=== PATIENT | male | born 1970 | race Caucasian/White ===

== ENCOUNTER 2022-06-08 03:23 | Inpatient (IN) | payer BC, SELFPAY ==
[2022-06-08] VITALS (40 sets, daily range): BP systolic 101–139; BP diastolic 66–97; PULSE 91–160; RESP 16–28; TEMP 36.7–37.9; O2SAT 93–101; BMI 32.3
--- NOTE | 2022-06-08 03:44 | ED.GENADULT ---
HPI - General Adult General Time Seen by Provider: 03:44 Date Seen: 06/08/22 Chief complaint: Arrhythmia/Palpitations Stated complaint: A fib Time Seen by Provider: 06/08/22 10:23 Source: patient and family Mode of arrival: ambulatory Limitations: no limitations History of Present Illness HPI narrative: 51-year-old male who comes in today with palpitations. Patient notes that he has had some chest congestion for the past 4 days. Tonight he had some chills, woke up just prior to coming the emergency department and felt like his heart was going fast. He put on a heart monitor that demonstrated atrial fibrillation and so came to the emergency department. Patient notes that he has had several episodes similar to this in the past and was told that he has pericarditis. He has some shortness of breath with this, denies chest pain. Related Data Home Medications Medication Instructions Recorded Confirmed fluoxetine 10 mg capsule 10 mg PO DAILY 06/08/22 06/08/22 fluoxetine 20 mg capsule 60 mg PO DAILY 06/08/22 06/08/22 valacyclovir 1 gram tablet 1,000 mg PO DAILY 06/08/22 06/08/22 Allergies Allergy/AdvReac Type Severity Reaction Status Date / Time No Known Drug Allergies Allergy Verified 06/08/22 03:39 Review of Systems Status of ROS: Reports: 10 or more systems reviewed and unremarkable except as noted in History and below [facility] Medical History ADHD Afib Depression Diverticulosis of colon History of pericarditis HTN (hypertension) Migraines Paroxysmal atrial fibrillation with RVR Pulmonary nodule seen on imaging study Surgical History History of appendectomy Social History Highest level of school completed/degree received: Bachelor's degree Smoking Status: Never smoker Do you use any of these nicotine containing products: None How often do you have a drink containing alcohol: monthly or less AUDIT-C Alcohol total score: 1 Non-prescribed substance use: denies use Caffeine: Yes (iced tea) service: No Exam Const: Vital Signs, click to edit/add: Vital Signs - 24 hr 06/08/22 03:36 06/08/22 03:45 06/08/22 04:00 Temperature 100.3 F H 100.3 F H Pulse Rate [Apical ] 151 H 160 H 146 H Respiratory Rate 22 24 26 H Blood Pressure [Le ft Upper Arm] 127/91 H 127/91 H 139/84 Pulse Oximetry 96 96 95 Oxygen Delivery Me thod Room Air Room Air Room Air 06/08/22 04:15 06/08/22 04:30 06/08/22 04:45 Temperature Pulse Rate [Apical ] 142 H 140 H 126 H Respiratory Rate 20 20 22 Blood Pressure [Le ft Upper Arm] 102/80 116/83 115/79 Pulse Oximetry 95 96 95 Oxygen Delivery Me thod Room Air Room Air Room Air 06/08/22 05:00 06/08/22 05:15 06/08/22 05:00 Temperature 100.1 F H Pulse Rate [Apical ] 129 H 114 H Respiratory Rate 20 20 Blood Pressure [Le ft Upper Arm] 104/95 H 118/84 Pulse Oximetry 96 [facility] 06/08/22 05:30 06/08/22 06:37 06/08/22 05:45 Temperature 100.1 F H 99.5 F Pulse Rate [Apical ] 138 H 137 H Respiratory Rate 20 24 Blood Pressure [Le ft Upper Arm] 116/90 H 128/97 H Pulse Oximetry 96 96 Oxygen Delivery Me od Room Air Room Air 06/08/22 09:15 06/08/22 06:00 06/08/22 06:25 Temperature Pulse Rate [Apical ] 105 H 126 H 134 H Respiratory Rate Blood Pressure [Le ft Upper Arm] 116/81 117/87 127/73 Pulse Oximetry 93 96 Oxygen Delivery Me od Room Air Room Air Room Air 06/08/22 06:32 06/08/22 07:00 06/08/22 07:20 Temperature Pulse Rate [Apical ] 129 H 116 H 131 H Respiratory Rate 16 28 H 24 Blood Pressure [Le ft Upper Arm] 106/81 123/87 127/77 Pulse Oximetry 95 95 Oxygen Delivery Me od Room Air Room Air 06/08/22 07:40 06/08/22 08:00 06/08/22 08:30 Temperature Pulse Rate [Apical ] 113 H 109 H 103 H Respiratory Rate 24 27 H 22 Blood Pressure [Le ft Upper Arm] 105/83 131/90 H 121/83 Pulse Oximetry 95 94 94 Oxygen Delivery Me thod Room Air Room Air 06/08/22 09:05 06/08/22 09:30 06/08/22 10:00 Temperature Pulse Rate [Apical ] 110 H 120 H 101 H Respiratory Rate 21 18 24 Blood Pressure [Le ft Upper Arm] 125/91 H 117/89 101/81 Pulse Oximetry 95 96 101 H Oxygen Delivery Me thod Room Air Room Air Room Air 06/08/22 10:30 06/08/22 11:30 06/08/22 12:00 Temperature Pulse Rate [Apical ] 105 H 109 H 101 H Respiratory Rate Blood Pressure [Le ft Upper Arm] 103/79 108/84 124/80 Pulse Oximetry 94 95 93 Oxygen Delivery Me thod Room Air Room Air Room Air 06/08/22 12:30 06/08/22 13:00 06/08/22 13:30 Temperature Pulse Rate [Apical ] 103 H 96 99 Respiratory Rate Blood Pressure [Le ft Upper Arm] 120/84 116/84 116/76 Pulse Oximetry 95 95 95 Oxygen Delivery Me thod Room Air Room Air Room Air 06/08/22 13:00 06/08/22 14:00 06/08/22 14:30 Temperature Pulse Rate [Apical ] 96 101 H 106 H Respiratory Rate 24 21 Blood Pressure [Le ft Upper Arm] 116/84 111/66 116/77 Pulse Oximetry 95 94 96 Oxygen Delivery Me thod Room Air Room Air Room Air 06/08/22 15:00 06/08/22 15:30 Temperature Pulse Rate [Apical ] 109 H 102 H Respiratory Rate 26 H 20 Blood Pressure [Le ft Upper Arm] 135/92 H 115/81 Pulse Oximetry 96 93 Oxygen Delivery Me thod Room Air Room Air Documenting provider has reviewed patient's vital signs: yes Common normals: no apparent distress, oriented x3, alert and well nourished HENMT: Common normals: normocephalic, head/scalp atraumatic, external ears normal and external nose normal Head and scalp: normocephalic and atraumatic Nose: external nose normal External ear: external ears normal Eye: Common normals: PERRL and conjunctivae normal Conjunctiva: conjunctiva(e) normal Pupil: PERRL Neck & C-Spine: Common normals: full ROM, no lymphadenopathy and supple Chest: Common normals: palpation of chest normal Resp: Common normals: normal respiratory effort and clear to auscultation bilaterally Auscultation: clear to auscultation bilaterally Cardio: Common normals: no murmurs Rate: tachycardic Rhythm: abnormal rhythm irregularly irregular GI: Common normals: Normal to inspection, nondistended, normoactive bowel sounds present, soft to palpation and non-tender Palpation: soft : Common normals: no CVA tenderness Bladder/kidney exam: no CVA tenderness Back & Pelvis: Common normals: no CVA tenderness and thoracic and lumbar spine normal to inspection Extremity: Common normals: normal to inspection, full ROM and no pedal edema Neuro: Common normals: oriented x3, CN's II-XII intact bilaterally and no focal motor deficits Sensorium/orientation: alert Psych: Common normals: mental status grossly normal Skin: Common normals: no rashes or lesions noted General skin exam: no rashes or lesions noted Course Course Hospital Course: Patient seen and examined, prior records are reviewed. Patient presents with palpitations and found to be in atrial fibrillation. He has had similar in the past mood to pericarditis. Other than atrial fibrillation, EKG does not demonstrate any acute ST changes. Labs are ordered and will evaluate for pericarditis, acute coronary syndrome, pulmonary embolism. IV fluids and Cardizem are ordered. Reevaluation(s) Reevaluation #1: Troponin, basic panel are reassuring. Minimal improvement in heart rate after Cardizem IV, repeat doses ordered. Chest x-ray personally reviewed and interpreted by me demonstrates questionable cardiomegaly which may be technique based. Basic panel is reassuring. Magnesium, CRP, BNP, TSH are pending. Time: 04:35 Reevaluation #2: Bedside echocardiogram does not demonstrate significant effusion although limited due to body habitus. D-dimer is elevated, chest CT is ordered. Second dose of Cardizem it has just been given, heart rate did decrease to 100-120. Time: 04:53 Reevaluation #3: Patient remains tachycardic 120-130 after 2nd dose of Cardizem, Cardizem drip is initiated. CT scan does appear to show a small pericardial effusion. CV reviews elevated. Will discuss with Cardiology went radiology interpretation CT is done. Time: 05:39 Additional Reevaluation(s): 7:[address] scan does demonstrate a small pericardial effusion and bilateral pleural effusions. Patient remains stable, heart rate 110-120 on Cardizem drip. Will discuss with Cardiology. Consultations Consultation #1: Care discussed with with [facility]. Recommends switching to amiodarone for rate control, also initiating colchicine. No beds available for transfer. Will continue to monitor in the emergency department while looking for alternative bed placement. Time: 07:50 Consultation #2: Care discussed with cardiology at [place]. Recommends continuing Cardizem for rate control, no echocardiogram recommended at this time, consider cardiac MRI as an outpatient. Agrees with plan for colchicine but feels patient does not need higher level of care if patient could be admitted on Cardizem drip and [place]. Will discuss with hospitalist. Time: 08:17 Vital Signs Vital signs: Initial Vital Signs Temperature 100.3 F H 06/08/22 03:36 Temperature Source Temporal Artery Scan 06/08/22 03:36 Pulse Rate 151 H 06/08/22 03:36 Pulse Rhythm 06/08/22 03:36 Respiratory Rate 22 06/08/22 03:36 Blood Pressure 127/91 H 06/08/22 03:36 Blood Pressure Mean 103 06/08/22 03:36 Blood Pressure Position Sitting 06/08/22 03:36 Pulse Oximetry 96 06/08/22 03:36 Oxygen Delivery Method 06/08/22 03:36 Vital Signs Temperature 100.3 F H 06/08/22 03:36 Pulse Rate 151 H 06/08/22 03:36 Respiratory Rate 22 06/08/22 03:36 Blood Pressure 127/91 H 06/08/22 03:36 Pulse Oximetry 96 06/08/22 03:36 Oxygen Delivery Method 06/08/22 03:36 Temperature 98.5 F 06/08/22 16:21 Pulse Rate 95 06/08/22 17:25 Respiratory Rate 20 06/08/22 17:23 Blood Pressure 120/84 06/08/22 17:15 Pulse Oximetry 94 06/08/22 17:23 Oxygen Delivery Method 06/08/22 17:23 Medical Decision Making Medical Records Medical records reviewed: Yes I reviewed the patient's medical records Lab Data Lab results reviewed: Yes I reviewed the patient's lab results Labs: Lab Results 06/08/22 06/08/2222 Range/Units 03:47 03:47 03:47 WBC 8.03 (4.50-11.00) K/uL RBC 4.52 (4.30-5.90) m/uL Hgb 13.9 (13.5-17.5) gm/dL Hct 40.4 (37.0-53.0) % MCV 89 (80-100) fL MCH 31 (26-34) pg MCHC 34 (32-36) gm/dL RDW Coeff of [place] 11.9 (11.5-15.5) % Plt Count 287 (140-440) K/uL Neut % (Auto) 68.2 (42.0-72.0) % Lymph % (Auto) 18.6 L (20-44) % [place] % (Auto) 11.1 H (0.0-11.0) % Eos % (Auto) 1.5 (0.0-7.0) % Baso % (Auto) 0.2 (0.0-3.0) % Neut # (Auto) 5.48 (1.7-7.0) K/uL Lymph # (Auto) 1.50 (0.90-2.90) K/uL [place] # (Auto) 0.90 (0.00-0.90) K/UL Eos # (Auto) 0.12 (0.00-0.50) K/uL Baso # (Auto) 0.02 (0.00-0.30) K/uL Abs Immat Gran (auto) 0.03 (0.00-0.30) K/uL D-Dimer Quant (PE/DVT) 1.80 H (0.00-0.50) ug/ml Sodium 135 (135-149) mmol/L Potassium 3.9 (3.6-5.1) mmol/L Chloride 103 (96-114) mmol/L Carbon Dioxide 24 (20-32) mmol/L BUN 22 (7-30) mg/dL Creatinine 0.9 (0.5-1.5) mg/dL Estimated Creat Clear 97.10 Estimated GFR 103 ml/min Glucose 130 H (60-115) mg/dL Calcium 9.1 (8.4-10.6) mg/dL Magnesium (1.5-2.6) mg/dL C-Reactive Protein (0.5-1.0) mg/dL NT-Pro-B Natriuret Pep 838 H (0-125) PG/mL TSH (0.270-4.200) uIU/mL Urine Opiates Screen (Negative) Ur Oxycodone Screen (Negative) Urine Methadone Screen (Negative) Ur Propoxyphene Screen (Negative) Ur Barbiturates Screen (Negative) U Tricyclic Antidepress (Negative) Ur Phencyclidine Scrn (Negative) Ur Amphetamines Screen (Negative) U Methamphetamines Scrn (Negative) U Benzodiazepines Scrn (Negative) Urine Cocaine Screen (Negative) U Marijuana (THC) Screen (Negative) Ur Drug Screen Comment Ethyl Alcohol < 0.01 L (0.01-0.03) % SARS-CoV-2 (PCR) (Negative) Influenza Type A (PCR) (Negative) Influenza Type B (PCR) (Negative) POC Troponin I (0.01-0.04) ng/ml 06/08/22 06/08/22 06/08/22 Range/Units 03:47 03:47 03:47 WBC (4.50-11.00) K/uL RBC (4.30-5.90) m/uL Hgb (13.5-17.5) gm/dL Hct (37.0-53.0) % MCV (80-100) fL MCH (26-34) pg MCHC (32-36) gm/dL RDW Coeff of [place] (11.5-15.5) % Plt Count (140-440) K/uL Neut % (Auto) (42.0-72.0) % Lymph % (Auto) (20-44) % [place] % (Auto) (0.0-11.0) % Eos % (Auto) (0.0-7.0) % Baso % (Auto) (0.0-3.0) % Neut # (Auto) (1.7-7.0) K/uL Lymph # (Auto) (0.90-2.90) K/uL [place] # (Auto) (0.00-0.90) K/UL Eos # (Auto) (0.00-0.50) K/uL Baso # (Auto) (0.00-0.30) K/uL Abs Immat Gran (auto) (0.00-0.30) K/uL D-Dimer Quant (PE/DVT) (0.00-0.50) ug/ml Sodium (135-149) mmol/L Potassium (3.6-5.1) mmol/L Chloride (96-114) mmol/L Carbon Dioxide (20-32) mmol/L BUN (7-30) mg/dL Creatinine (0.5-1.5) mg/dL Estimated Creat Clear Estimated GFR ml/min Glucose (60-115) mg/dL Calcium (8.4-10.6) mg/dL Magnesium (1.5-2.6) mg/dL C-Reactive Protein 5.7 H (0.5-1.0) mg/dL NT-Pro-B Natriuret Pep (0-125) PG/mL TSH 1.020 (0.270-4.200) uIU/mL Urine Opiates Screen (Negative) Ur Oxycodone Screen (Negative) Urine Methadone Screen (Negative) Ur Propoxyphene Screen (Negative) Ur Barbiturates Screen (Negative) U Tricyclic Antidepress (Negative) Ur Phencyclidine Scrn (Negative) Ur Amphetamines Screen (Negative) U Methamphetamines Scrn (Negative) U Benzodiazepines Scrn (Negative) Urine Cocaine Screen (Negative) U Marijuana (THC) Screen (Negative) Ur Drug Screen Comment Ethyl Alcohol (0.01-0.03) % SARS-CoV-2 (PCR) (Negative) Influenza Type A (PCR) (Negative) Influenza Type B (PCR) (Negative) POC Troponin I 0.00 L (0.01-0.04) ng/ml 06/08/22 06/08/22 06/08/22 Range/Units 03:47 03:55 04:16 WBC (4.50-11.00) K/uL RBC (4.30-5.90) m/uL Hgb (13.5-17.5) gm/dL Hct (37.0-53.0) % MCV (80-100) fL MCH (26-34) pg MCHC (32-36) gm/dL RDW Coeff of [place] (11.5-15.5) % Plt Count (140-440) K/uL Neut % (Auto) (42.0-72.0) % Lymph % (Auto) (20-44) % [place] % (Auto) (0.0-11.0) % Eos % (Auto) (0.0-7.0) % Baso % (Auto) (0.0-3.0) % Neut # (Auto) (1.7-7.0) K/uL Lymph # (Auto) (0.90-2.90) K/uL [place] # (Auto) (0.00-0.90) K/UL Eos # (Auto) (0.00-0.50) K/uL Baso # (Auto) (0.00-0.30) K/uL Abs Immat Gran (auto) (0.00-0.30) K/uL D-Dimer Quant (PE/DVT) (0.00-0.50) ug/ml Sodium (135-149) mmol/L Potassium (3.6-5.1) mmol/L Chloride (96-114) mmol/L Carbon Dioxide (20-32) mmol/L BUN (7-30) mg/dL Creatinine (0.5-1.5) mg/dL Estimated Creat Clear Estimated GFR ml/min Glucose (60-115) mg/dL Calcium (8.4-10.6) mg/dL Magnesium 1.8 (1.5-2.6) mg/dL C-Reactive Protein (0.5-1.0) mg/dL NT-Pro-B Natriuret Pep (0-125) PG/mL TSH (0.270-4.200) uIU/mL Urine Opiates Screen Negative (Negative) Ur Oxycodone Screen Negative (Negative) Urine Methadone Screen Negative (Negative) Ur Propoxyphene Screen Negative (Negative) Ur Barbiturates Screen Negative (Negative) U Tricyclic Antidepress Negative (Negative) Ur Phencyclidine Scrn Negative (Negative) Ur Amphetamines Screen Negative (Negative) U Methamphetamines Scrn Negative (Negative) U Benzodiazepines Scrn Negative (Negative) Urine Cocaine Screen Negative (Negative) U Marijuana (THC) Screen Negative (Negative) Ur Drug Screen Comment See Note Ethyl Alcohol (0.01-0.03) % SARS-CoV-2 (PCR) Negative SARS-CoV-2 (Negative) Influenza Type A (PCR) Negative PCR FLU A (Negative) Influenza Type B (PCR) Negative PCR FLU B (Negative) POC Troponin I (0.01-0.04) ng/ml Imaging Data Chest x-ray: Attestation: I have reviewed the pertinent imaging results. My impression: Negative CT scan - chest: Attestation: I have reviewed the pertinent imaging results. My impression: No pulmonary embolism, small to moderate-sized pericardial effusion ECG Data Attestation: I personally reviewed and interpreted this ECG as follows: Prior ECG tracings: available for review Interpretation: Performed at 3:32 p.m. demonstrates atrial fibrillation with rapid ventricular response rate 46, no acute ST elevations or depressions, normal axis, QTC 445. Compared to prior March 2017 from [facility], prior EKG demonstrates sinus the Critical Care Time Critical Care Time Critical Care Time: Yes Attestation: The patient required my highest level preparedness to intervene emergently and I personally spent this critical care time directly and personally managing the patient. This critical care time included: Obtaining a history; Examining the patient; Pulse oximetry; Ordering and reviewing of studies; Arranging urgent treatment with development of a management plan; Evaluation of patients response to treatment; Frequent reassessment discussions with other providers. This critical care time was performed to assess and manage the high probability of imminent life-threatening deterioration that could result in multiorgan failure. It was exclusive of separate billable procedures and treating other patients and teaching time. Total Critical Care Time in Minutes: 140 Discharge Plan Discharge Clinical Impression: Atrial fibrillation, Acute pericardial effusion, Pleural effusion Patient Disposition: Admitted As Inpatient Condition: Improved
--- NOTE | 2022-06-08 03:51 | CRLHL7_ITS ---
For Patients: As a result of the Century Cures Act, medical imaging exams and procedure reports are released immediately into your electronic medical record. You may view this report before your referring provider. If you have questions, please contact your health care provider. INDICATION: Dyspnea. TECHNIQUE: Chest 1 views. COMPARISON: Chest radiograph 10/05/2021. FINDINGS: Cardiovascular and mediastinum: Heart size and vasculature are normal in caliber and appearance. Lungs and pleural spaces: Lungs are clear. No sign of infiltrate or mass. No sign of pleural effusion. No pneumothorax. Bones and soft tissues: No significant findings. IMPRESSION: No acute or significant findings. Dictated by Wesly Ansari MD @ 06/08/2022 4:40:58 AM (Electronically Signed)
[2022-06-08] MEDS: 0.9 % SODIUM CHLORIDE 1000 ml 1,000 ML IV (04:04)
[2022-06-08 04:06] LABS: Basophils Absolute Auto 0.02 K/uL (0.00-0.30); Basophils Percent Auto 0.2 % (0.0-3.0); Eosinophils Absolute Auto 0.12 K/uL (0.00-0.50); Eosinophils Percent Auto 1.5 % (0.0-7.0); Hematocrit 40.4 % (37.0-53.0); Hemoglobin* 13.9 gm/dL (13.5-17.5); Immature Granulocytes Abs Auto 0.03 K/uL (0.00-0.30); Lymphocytes Percent Auto 18.6 % (20-44); Mean Corpuscular HGB Conc 34 gm/dL (32-36); Mean Corpuscular Hemoglobin 31 pg (26-34); Mean Corpuscular Volume 89 fL (80-100); Monocytes Percent Auto 11.1 % (0.0-11.0); Neutrophils Absolute Auto 5.48 K/uL (1.7-7.0); Neutrophils Percent Auto 68.2 % (42.0-72.0); Platelet Count* 287 K/uL (140-440); RDW Coefficient of Variation % 11.9 % (11.5-15.5); Red Blood Count 4.52 m/uL (4.30-5.90); White Blood Count* 8.03 K/uL (4.50-11.00)
[2022-06-08] MEDS: dilTIAZem 5 MG/ML inj 10 MG IVP (04:08)
[2022-06-08 04:16] LABS: Slide Review Reflex No
[2022-06-08 04:21] LABS: Chloride* 103 mmol/L (96-114); Sodium* 135 mmol/L (135-149)
[2022-06-08 04:22] LABS: Potassium* 3.9 mmol/L (3.6-5.1)
[2022-06-08 04:24] LABS: Carbon Dioxide* 24 mmol/L (20-32); Creatinine* 0.9 mg/dL (0.5-1.5); Estimated Glomerular Filt Rate 103 ml/min
[2022-06-08 04:25] LABS: Blood Urea Nitrogen* 22 mg/dL (7-30); Calcium* 9.1 mg/dL (8.4-10.6); Ethanol* < 0.01 % (0.01-0.03); Glucose* 130 mg/dL (60-115)
[2022-06-08 04:34] LABS: Amphetamine Screen Urine Negative (Negative); Barbiturate Screen Urine Negative (Negative); Benzodiazepines Screen Urine Negative (Negative); Cannabinoid Screen Urine Negative (Negative); Cocaine Screen Urine Negative (Negative); Methadone Screen Urine Negative (Negative); Methamphetamines Screen Urine Negative (Negative); Opiate Screen Urine Negative (Negative); Oxycodone Screen Urine Negative (Negative); Phencyclidine Screen Urine Negative (Negative); Tricyclic Antidepressant Urine Negative (Negative)
[2022-06-08] MEDS: dilTIAZem 5 MG/ML inj 15 MG IVP (04:47)
[2022-06-08] MEDS: ACETAMINOPHEN 500 MG TABLET 1000 MG PO (04:48)
--- NOTE | 2022-06-08 04:53 | CRLHL7_ITS ---
For Patients: As a result of the Century Cures Act, medical imaging exams and procedure reports are released immediately into your electronic medical record. You may view this report before your referring provider. If you have questions, please contact your health care provider. INDICATION: Elevated D-dimer, atrial fibrillation TECHNIQUE: CT chest pulmonary PE protocol acquired with 95 cc Isovue 370 IV contrast. COMPARISON: Chest CT April 25, 2020, July 03, 2018. FINDINGS: Cardiovascular structures: Normal vascular enhancement of the pulmonary arteries, no sign of pulmonary embolism. Heart size is normal. No sign of aneurysm in the thoracic aorta. New, small pericardial effusion. Mediastinum and clara: No mass or adenopathy. Lungs: 4.8 mm subpleural pulmonary nodule right upper lobe image 47 series 8, new compared to July 03, 2018. 9 mm pulmonary nodule in the right middle lobe image 98 series 8, stable. Pleura: New, small bilateral pleural effusions. Chest wall and axilla: No mass or adenopathy. Upper abdomen: Colonic diverticulosis. Bones: No significant findings. IMPRESSION: No pulmonary embolism. New, small pericardial effusion. New, small bilateral pleural effusions. Right middle lobe pulmonary nodule, stable since 2017. This can be considered benign. New pulmonary nodule in the right upper lobe which is new compared to the prior study. Recommend follow-up per Fleischner society guidelines, as listed below. Colonic diverticulosis. FLEISCHNER SOCIETY GUIDELINES - SOLID NODULES: SINGLE LOW RISK - nodule less than 6 mm: No routine follow-up. - nodule 6-8 mm: CT at 6-12 months, then consider CT at 18-24 months. - nodule greater than 8 mm: Consider CT at 3 months, PET/CT or tissue sampling. SINGLE HIGH RISK - nodule less than 6 mm: Optional CT at 12 months. - nodule 6-8 mm: CT at 6-12 months, then CT at 18-24 months. - nodule greater than 8 mm: Consider CT at 3 months, PET/CT or tissue sampling. Please note that all CT scans at this facility use dose modulation, iterative reconstruction, and/or weight-based dosing when appropriate to reduce radiation dose to as low as reasonably achievable. Dictated by Fiorella Holly MD @ 06/08/2022 7:04:26 AM (Electronically Signed)
[2022-06-08 04:57] LABS: PCR FLU A Negative PCR FLU A (Negative); PCR FLU B Negative PCR FLU B (Negative)
[2022-06-08 05:04] LABS: SARS PCR* Negative SARS-CoV-2 (Negative)
[2022-06-08 05:12] LABS: NT Pro B Type NatriureticPept* 838 PG/mL (0-125)
[2022-06-08 05:13] LABS: Magnesium* 1.8 mg/dL (1.5-2.6)
[2022-06-08 05:34] LABS: C Reactive Protein* 5.7 mg/dL (0.5-1.0)
[2022-06-08] MEDS: dilTIAZem HCL 125 MG in 0.9 % SODIUM CHLORIDE 100 ml 100 ML IVPB (05:49)
--- NOTE | 2022-06-08 06:45 | PC.NURSE ---
pt up at bedside using urinal, c/o increased shortness of breath with activity. headache discomfort still 03/05. physician updated.
--- NOTE | 2022-06-08 06:46 | PC.NURSE ---
per physician verbal order, titrate diltiazem drip as ordered, maintain systolic >100.
[2022-06-08] MEDS: dilTIAZem HCL 125 MG in 0.9 % SODIUM CHLORIDE 100 ml 100 ML 10 MG IVPB (07:35)
--- NOTE | 2022-06-08 07:35 | ED.NURSE ---
Per Dr Anna, continue on diltiazem drip.
[2022-06-08] MEDS: FUROSEMIDE 10 MG/ML inj 40 MG IVP (07:43)
[2022-06-08] MEDS: COLCHICINE 0.6 MG CAPSULE PO (08:17)
--- NOTE | 2022-06-08 09:38 | ED.NURSE ---
did void 300 ml and had 1000 ml out from [id number].
--- NOTE | 2022-06-08 13:04 | ED.GENADULT ---
HPI - General Adult General Chief complaint: Arrhythmia/Palpitations Stated complaint: A fib Time Seen by Provider: 06/08/22 10:23 Source: patient and family Mode of arrival: ambulatory Limitations: no limitations Related Data Home Medications Medication Instructions Recorded Confirmed fluoxetine 10 mg capsule 10 mg PO DAILY 06/08/22 06/08/22 fluoxetine 20 mg capsule 60 mg PO DAILY 06/08/22 06/08/22 valacyclovir 1 gram tablet 1,000 mg PO DAILY 06/08/22 06/08/22 Allergies Allergy/AdvReac Type Severity Reaction Status Date / Time No Known Drug Allergies Allergy Verified 06/08/22 03:39 PFSH PFS Medical History ADHD Afib Depression Diverticulosis of colon History of pericarditis HTN (hypertension) Migraines Paroxysmal atrial fibrillation with RVR Pulmonary nodule seen on imaging study Surgical History History of appendectomy Social History Highest level of school completed/degree received: Bachelor's degree Smoking Status: Never smoker Do you use any of these nicotine containing products: None How often do you have a drink containing alcohol: monthly or less AUDIT-C Alcohol total score: 1 Non-prescribed substance use: denies use Caffeine: Yes (iced tea) service: No Exam Const: Vital Signs, click to edit/add: Vital Signs - 24 hr 06/08/22 03:36 06/08/22 03:45 06/08/22 04:00 Temperature 100.3 F H 100.3 F H Pulse Rate [Apical ] 151 H 160 H 146 H Respiratory Rate 22 24 26 H Blood Pressure [Le ft Upper Arm] 127/91 H 127/91 H 139/84 Pulse Oximetry 96 96 95 Oxygen Delivery Me thod Room Air Room Air Room Air 06/08/22 04:15 06/08/22 04:30 06/08/22 04:45 Temperature Pulse Rate [Apical ] 142 H 140 H 126 H Respiratory Rate 20 20 22 Blood Pressure [Le ft Upper Arm] 102/80 116/83 115/79 Pulse Oximetry 95 96 95 Oxygen Delivery Me thod Room Air Room Air Room Air 06/08/22 05:00 06/08/22 05:15 06/08/22 05:00 Temperature 100.1 F H Pulse Rate [Apical ] 129 H 114 H Respiratory Rate 20 20 Blood Pressure [Le ft Upper Arm] 104/95 H 118/84 Pulse Oximetry 96 96 Oxygen Delivery Nc thod Room Air Room Air 06/08/22 05:30 06/08/22 06:37 06/08/22 05:45 Temperature 100.1 F H 99.5 F Pulse Rate [Apical ] 138 H 137 H Respiratory Rate 20 24 Blood Pressure [Le ft Upper Arm] 116/90 H 128/97 H Pulse Oximetry 96 96 Oxygen Delivery Me od Room Air Room Air 06/08/22 09:15 06/08/22 06:00 06/08/22 06:25 Temperature Pulse Rate [Apical ] 105 H 126 H 134 H Respiratory Rate Blood Pressure [Le ft Upper Arm] 116/81 117/87 127/73 Pulse [facility]ximetry 93 [facility] 06/08/22 06:32 06/08/22 07:00 06/08/22 07:20 Temperature Pulse Rate [Apical ] 129 H 116 H 131 H Respiratory Rate 16 28 H 24 Blood Pressure [Le ft Upper Arm] 106/81 123/87 127/77 Pulse Oximetry 95 95 [facility] 06/08/22 07:40 06/08/22 08:00 06/08/22 08:30 Temperature Pulse Rate [Apical ] 113 H 109 H 103 H Respiratory Rate 24 27 H 22 Blood Pressure [Le ft Upper Arm] 105/83 131/90 H 121/83 Pulse Oximetry 95 94 94 [facility] 06/08/22 09:05 06/08/22 09:30 06/08/22 10:00 Temperature Pulse Rate [Apical ] 110 H 120 H 101 H Respiratory Rate 21 18 24 Blood Pressure [Le ft Upper Arm] 125/91 H 117/89 101/81 Pulse Oximetry 95 96 101 H Oxygen Delivery Me od Room Air Room Air Room Air 06/08/22 10:30 06/08/22 11:30 06/08/22 12:00 Temperature Pulse Rate [Apical ] 105 H 109 H 101 H Respiratory Rate Blood Pressure [Le ft Upper Arm] 103/79 108/84 124/80 Pulse Oximetry 94 95 93 Oxygen Delivery Me thod Room Air Room Air Room Air 06/08/22 12:30 06/08/22 13:00 06/08/22 13:30 Temperature Pulse Rate [Apical ] 103 H 96 99 Respiratory Rate Blood Pressure [Le ft Upper Arm] 120/84 116/84 116/76 Pulse Oximetry 95 95 95 Oxygen Delivery Me thod Room Air Room Air Room Air 06/08/22 13:00 06/08/22 14:00 06/08/22 14:30 Temperature Pulse Rate [Apical ] 96 101 H 106 H Respiratory Rate 24 21 Blood Pressure [Le ft Upper Arm] 116/84 111/66 116/77 Pulse Oximetry 95 94 96 Oxygen Delivery Me thod Room Air Room Air Room Air 06/08/22 15:00 06/08/22 15:30 Temperature Pulse Rate [Apical ] 109 H 102 H Respiratory Rate 26 H 20 Blood Pressure [Le ft Upper Arm] 135/92 H 115/81 Pulse Oximetry 96 93 Oxygen Delivery Me thod Room Air Room Air Course Course Hospital Course: Patient seen and examined, prior records are reviewed. Patient presents with palpitations and found to be in atrial fibrillation. He has had similar in the past mood to pericarditis. Other than atrial fibrillation, EKG does not demonstrate any acute ST changes. Labs are ordered and will evaluate for pericarditis, acute coronary syndrome, pulmonary embolism. IV fluids and Cardizem are ordered. Vital Signs Vital signs: Initial Vital Signs Temperature 100.3 F H 06/08/22 03:36 Temperature Source Temporal Artery Scan 06/08/22 03:36 Pulse Rate 151 H 06/08/22 03:36 Pulse Rhythm 06/08/22 03:36 Respiratory Rate 06/08/22 03:36 Blood Pressure 127/91 H 06/08/22 03:36 Blood Pressure Mean 103 06/08/22 03:36 Blood Pressure Position Sitting 06/08/22 03:36 Pulse Oximetry 96 06/08/22 03:36 Oxygen Delivery Method 06/08/22 03:36 Vital Signs Temperature 100.3 F H 06/08/22 03:36 Pulse Rate 151 H 06/08/22 03:36 Respiratory Rate 22 06/08/22 03:36 Blood Pressure 127/91 H 06/08/22 03:36 Pulse Oximetry 96 06/08/22 03:36 Oxygen Delivery Method 06/08/22 03:36 Temperature 98.5 F 06/08/22 16:21 Pulse Rate 95 06/08/22 17:25 Respiratory Rate 20 06/08/22 17:23 Blood Pressure 120/84 06/08/22 17:15 Pulse Oximetry 94 06/08/22 17:23 Oxygen Delivery Method 06/08/22 17:23 Medical Decision Making MDM Narrative Medical decision making narrative: The patient has been stable on and IV diltiazem drip, the patient will be transferred to oral diltiazem and then titrated off the drip. He will be transferred the hospital floor per prior discussions with Dr. Anna in hospital team. Lab Data Labs: Lab Results 06/08/22 06/08/22 06/08/22 Range/Units 03:47 03:47 03:47 WBC 8.03 (4.50-11.00) K/uL RBC 4.52 (4.30-5.90) m/uL Hgb 13.9 (13.5-17.5) gm/dL Hct 40.4 (37.0-53.0) % MCV 89 (80-100) fL MCH 31 (26-34) pg MCHC 34 (32-36) gm/dL RDW Coeff of [place] 11.9 (11.5-15.5) % Plt Count 287 (140-440) K/uL Neut % (Auto) 68.2 (42.0-72.0) % Lymph % (Auto) 18.6 L (20-44) % [place] % (Auto) 11.1 H (0.0-11.0) % Eos % (Auto) 1.5 (0.0-7.0) % Baso % (Auto) 0.2 (0.0-3.0) % Neut # (Auto) 5.48 (1.7-7.0) K/uL Lymph # (Auto) 1.50 (0.90-2.90) K/uL [place] # (Auto) 0.90 (0.00-0.90) K/UL Eos # (Auto) 0.12 (0.00-0.50) K/uL Baso # (Auto) 0.02 (0.00-0.30) K/uL Abs Immat Gran (auto) 0.03 (0.00-0.30) K/uL D-Dimer Quant (PE/DVT) 1.80 H (0.00-0.50) ug/ml Sodium 135 (135-149) mmol/L Potassium 3.9 (3.6-5.1) mmol/L Chloride 103 (96-114) mmol/L Carbon Dioxide 24 (20-32) mmol/L BUN 22 (7-30) mg/dL Creatinine 0.9 (0.5-1.5) mg/dL Estimated Creat Clear 97.10 Estimated GFR 103 ml/min Glucose 130 H (60-115) mg/dL Calcium 9.1 (8.4-10.6) mg/dL Magnesium (1.5-2.6) mg/dL C-Reactive Protein (0.5-1.0) mg/dL NT-Pro-B Natriuret Pep 838 H (0-125) PG/mL TSH (0.270-4.200) uIU/mL Urine Opiates Screen (Negative) Ur Oxycodone Screen (Negative) Urine Methadone Screen (Negative) Ur Propoxyphene Screen (Negative) Ur Barbiturates Screen (Negative) U Tricyclic Antidepress (Negative) Ur Phencyclidine Scrn (Negative) Ur Amphetamines Screen (Negative) U Methamphetamines Scrn (Negative) U Benzodiazepines Scrn (Negative) Urine Cocaine Screen (Negative) U Marijuana (THC) Screen (Negative) Ur Drug Screen Comment Ethyl Alcohol < 0.01 L (0.01-0.03) % SARS-CoV-2 (PCR) (Negative) Influenza Type A (PCR) (Negative) Influenza Type B (PCR) (Negative) POC Troponin I (0.01-0.04) ng/ml 06/08/22 06/08/22 06/08/22 Range/Units 03:47 03:47 03:47 WBC (4.50-11.00) K/uL RBC (4.30-5.90) m/uL Hgb (13.5-17.5) gm/dL Hct (37.0-53.0) % MCV (80-100) fL MCH (26-34) pg MCHC (32-36) gm/dL RDW Coeff of [place] (11.5-15.5) % Plt Count (140-440) K/uL Neut % (Auto) (42.0-72.0) % Lymph % (Auto) (20-44) % [place] % (Auto) (0.0-11.0) % Eos % (Auto) (0.0-7.0) % Baso % (Auto) (0.0-3.0) % Neut # (Auto) (1.7-7.0) K/uL Lymph # (Auto) (0.90-2.90) K/uL [place] # (Auto) (0.00-0.90) K/UL Eos # (Auto) (0.00-0.50) K/uL Baso # (Auto) (0.00-0.30) K/uL Abs Immat Gran (auto) (0.00-0.30) K/uL D-Dimer Quant (PE/DVT) (0.00-0.50) ug/ml Sodium (135-149) mmol/L Potassium (3.6-5.1) mmol/L Chloride (96-114) mmol/L Carbon Dioxide (20-32) mmol/L BUN (7-30) mg/dL Creatinine (0.5-1.5) mg/dL Estimated Creat Clear Estimated GFR ml/min Glucose (60-115) mg/dL Calcium (8.4-10.6) mg/dL Magnesium (1.5-2.6) mg/dL C-Reactive Protein 5.7 H (0.5-1.0) mg/dL NT-Pro-B Natriuret Pep (0-125) PG/mL TSH 1.020 (0.270-4.200) uIU/mL Urine Opiates Screen (Negative) Ur Oxycodone Screen (Negative) Urine Methadone Screen (Negative) Ur Propoxyphene Screen (Negative) Ur Barbiturates Screen (Negative) U Tricyclic Antidepress (Negative) Ur Phencyclidine Scrn (Negative) Ur Amphetamines Screen (Negative) U Methamphetamines Scrn (Negative) U Benzodiazepines Scrn (Negative) Urine Cocaine Screen (Negative) U Marijuana (THC) Screen (Negative) Ur Drug Screen Comment Ethyl Alcohol (0.01-0.03) % SARS-CoV-2 (PCR) (Negative) Influenza Type A (PCR) (Negative) Influenza Type B (PCR) (Negative) POC Troponin I 0.00 L (0.01-0.04) ng/ml 08/13/22 08/13/22 08/13/22 Range/Units 03:47 03:55 04:16 WBC (4.50-11.00) K/uL RBC (4.30-5.90) m/uL Hgb (13.5-17.5) gm/dL Hct (37.0-53.0) % MCV (80-100) fL MCH (26-34) pg MCHC (32-36) gm/dL RDW Coeff of [place] (11.5-15.5) % Plt Count (140-440) K/uL Neut % (Auto) (42.0-72.0) % Lymph % (Auto) (20-44) % [place] % (Auto) (0.0-11.0) % Eos % (Auto) (0.0-7.0) % Baso % (Auto) (0.0-3.0) % Neut # (Auto) (1.7-7.0) K/uL Lymph # (Auto) (0.90-2.90) K/uL [place] # (Auto) (0.00-0.90) K/UL Eos # (Auto) (0.00-0.50) K/uL Baso # (Auto) (0.00-0.30) K/uL Abs Immat Gran (auto) (0.00-0.30) K/uL D-Dimer Quant (PE/DVT) (0.00-0.50) ug/ml Sodium (135-149) mmol/L Potassium (3.6-5.1) mmol/L Chloride (96-114) mmol/L Carbon Dioxide (20-32) mmol/L BUN (7-30) mg/dL Creatinine (0.5-1.5) mg/dL Estimated Creat Clear Estimated GFR ml/min Glucose (60-115) mg/dL Calcium (8.4-10.6) mg/dL Magnesium 1.8 (1.5-2.6) mg/dL C-Reactive Protein (0.5-1.0) mg/dL NT-Pro-B Natriuret Pep (0-125) PG/mL TSH (0.270-4.200) uIU/mL Urine Opiates Screen Negative (Negative) Ur Oxycodone Screen Negative (Negative) Urine Methadone Screen Negative (Negative) Ur Propoxyphene Screen Negative (Negative) Ur Barbiturates Screen Negative (Negative) U Tricyclic Antidepress Negative (Negative) Ur Phencyclidine Scrn Negative (Negative) Ur Amphetamines Screen Negative (Negative) U Methamphetamines Scrn Negative (Negative) U Benzodiazepines Scrn Negative (Negative) Urine Cocaine Screen Negative (Negative) U Marijuana (THC) Screen Negative (Negative) Ur Drug Screen Comment See Note Ethyl Alcohol (0.01-0.03) % SARS-CoV-2 (PCR) Negative SARS-CoV-2 (Negative) Influenza Type A (PCR) Negative PCR FLU A (Negative) Influenza Type B (PCR) Negative PCR FLU B (Negative) POC Troponin I (0.01-0.04) ng/ml Discharge Plan Discharge Clinical Impression: Atrial fibrillation, Acute pericardial effusion, Pleural effusion Patient Disposition: Admitted As Inpatient Condition: Improved
[2022-06-08] MEDS: dilTIAZem 30 MG TABLET 60 MG PO (14:32)
--- NOTE | 2022-06-08 15:55 | W.PC.EDHO ---
Primary Language: Preferred Language: Orientation Status: [] Alert & Oriented [] Slight Confusion [] Known Dx Dementia Transfers By: [] Assist of 1 [] Assist of 2 [] Lift Active Medications Discontinued Medications Generic Name Dose Route Start Last Admin Trade Name Rachel PRN Reason Stop Dose Admin Acetaminophen 1,000 mg 06/08/22 04:34 06/08/22 04:48 Acetaminophen 500 Mg Tablet PO 06/08/22 04:35 1,000 mg ONCE ONE Administration Colchicine 0.6 mg 06/08/22 08:30 06/08/22 08:17 Colchicine 0.6 Mg Capsule PO 06/08/22 08:31 0.6 mg ONCE ONE Administration Diltiazem HCl 10 mg 06/08/22 03:52 06/08/22 04:08 Diltiazem 5 Mg/Ml Inj IVP 06/08/22 03:53 10 mg ONCE ONE Administration Diltiazem HCl 15 mg 06/08/22 04:34 06/08/22 04:47 Diltiazem 5 Mg/Ml Inj IVP 06/08/22 04:35 15 mg ONCE ONE Administration Diltiazem HCl 60 mg 06/08/22 13:02 06/08/22 14:32 Diltiazem 30 Mg Tablet PO 06/08/22 13:03 60 mg ONCE ONE Administration Furosemide 40 mg 06/08/22 07:14 06/08/22 07:43 Furosemide 10 Mg/Ml Inj IVP 06/08/22 07:15 40 mg ONCE ONE Administration Sodium Chloride 1,000 mls @ 1,000 mls/hr 06/08/22 04:00 06/08/22 05:00 0.9 % Sodium Chloride 1000 Ml IV 06/08/22 04:59 0 mls/hr .Q1H ALEXSANDER Infusion Diltiazem HCl 125 mg/ Sodium 125 mls @ 5 mls/hr 06/08/22 05:34 06/08/22 07:35 Chloride IVPB 10 mls/hr .TITRATE ALEXSANDER Infusion Protocol Diltiazem HCl 125 mg/ Sodium 125 mls @ 0 mls/hr 06/08/22 08:00 06/08/22 07:35 Chloride IVPB 10 mg/hr .TITRATE ALEXSANDER 10 mls/hr Administration Protocol Per Protocol Description of Symptoms ED Triage Present Problem woke up this AM sweating with chills, states no Description fevers. pt states put on apple watch and it said a fib 150hr, pt comes in with SOB at rest, trouble speaking full sentences without stopping. hr 130- 160. pt hx of pericarditis and a fib. pt states headache ED Triage Date of Onset of 06/08/22 Symptoms Female History Patient Pain Pain Intensity 3 Pain Intensity 6 Pain Intensity 5 Pain Intensity 0 Pain Intensity 5 Pain Scale Used Numeric (1 - 10) Pain Scale Used Numeric (1 - 10) Pain Scale Used Numeric (1 - 10) Pain Scale Used Numeric (1 - 10) IV Insertion/Site Date of IV Line Insertion [ 06/08/22 Left Antecubital] Oxygen Administration Pulse Oximetry 93 Pulse Oximetry 95 Pulse Oximetry 94 Pulse Oximetry 94 Pulse Oximetry 95 Pulse Oximetry 95 Pulse Oximetry 95 Pulse Oximetry 96 Pulse Oximetry 96 Pulse Oximetry 96 Pulse Oximetry 96 Pulse Oximetry 96 Pulse Oximetry 95 Pulse Oximetry 96 Pulse Oximetry 95 Pulse Oximetry 95 Pulse Oximetry 96 Pulse Oximetry 96 Oxygen Delivery Method Room Air Oxygen Delivery Method Room Air Oxygen Delivery Method Room Air Oxygen Delivery Method Room Air Oxygen Delivery Method Room Air Oxygen Delivery Method Room Air Oxygen Delivery Method Room Air Oxygen Delivery Method Room Air Oxygen Delivery Method Room Air Oxygen Delivery Method Room Air Oxygen Delivery Method Room Air Oxygen Delivery Method Room Air Oxygen Delivery Method Room Air Oxygen Delivery Method Room Air Oxygen Delivery Method Room Air Oxygen Delivery Method Room Air Oxygen Delivery Method Room Air Oxygen Delivery Method Room Air Cardiac Monitoring EKG Method 12 Lead EKG Method 12 Lead
--- NOTE | 2022-06-08 16:03 | PM.IMHP1 ---
Hospitalist- H&P: HPI History of Present Illness Time Seen by Provider: 15:00 Date Seen: 06/08/22 Chief complaint: AFib with RVR Narrative: Evens Naidu is a 51 year old man who presents with an irregular rapid heart rate since approximately 2:30 a.m. today. For the past 4 days the patient has had a sense of chest congestion and minimal dyspnea. He thinks this may have started as recently as 1 week ago Friday. He is uncertain if he has had a fever although he has been having episodes of feeling hot. This is not unusual for him after he has been exposed to someone who has a cold. He states his son had a cold he was around his son César think this is how he acquired this. As recently as yesterday morning he thought his symptoms were slowly improving. When out with his last night to celebrate their anniversary. When he returned home he felt hot again. Went to bed. Awoke around 230 this morning with sweat and possibly with chills. He was not able to feel his pulse in his wrist. Was able to feel his pulse in his neck. Pulse was fast. Put on his Pitzi watch which has an lorena and he confirmed his concerned that he had atrial fibrillation again with heart rates ranging from 74-160. At that juncture he decided come into emergency department for further assessment. Denies any chest heaviness, pressure, tightness, or pain. Denies dyspnea at rest, paroxysmal nocturnal dyspnea, or orthopnea. Or last few days has had a sense of dyspnea with exertion although it has not been profound. Denies cough. Has had some chest tightness or congestion off and on over the last several days which has since resolved. States he felt like he had an upper respiratory tract infection. Patient has had at least 5 previous episodes of atrial fibrillation with rapid ventricular response. This has been worked up variously. At 1 point in time possibly as recently as 5 years ago he was said to have had an acute pericarditis. Has had brief episodes of being treated with negative chronotropic agents. Has never been treated with antiarrhythmic agents. He tells me he has never been on anticoagulant. Denies history of venous thromboembolism. Denies myalgias or arthralgias. Aside from the episodes in the last 24 hours of feeling hot and possibly chills, he has had no fevers, rigors, diaphoresis. Denies weight gain or weight loss. Denies edema. Denies syncope, near syncope, orthostasis, lightheadedness, or vertigo. Review of Systems Status of ROS: Reports: 10 or more systems reviewed and unremarkable except as noted in History and below Narrative: Denies angina or anginal equivalent. Denies nausea or vomiting. Denies claudication. Denies edema. Denies other bowel or bladder concerns. No recent trauma, travel, or injury. No recent infectious illnesses. Denies fatigue or malaise. No focal motor neurologic deficits. Denies any rashes or cyanosis. Active in his job. Thoughts are fluent and coherent. No concerns about impending doom. Denies depression or anxiety. [facility] Medical History ADHD Afib Depression Diverticulosis of colon History of pericarditis HTN (hypertension) Migraines Paroxysmal atrial fibrillation with RVR Pulmonary nodule seen on imaging study Surgical History History of appendectomy Social History Smoking Status: Former smoker Do you use any of these nicotine containing products: None How often do you have a drink containing alcohol: monthly or less AUDIT-C Alcohol total score: 1 Non-prescribed substance use: denies use Meds Home Medications and Allergies Home Medications Medication Instructions Recorded Confirmed Type fluoxetine 10 mg capsule 10 mg PO DAILY 06/08/22 06/08/22 History fluoxetine 20 mg capsule 60 mg PO DAILY 06/08/22 06/08/22 History valacyclovir 1 gram tablet 1,000 mg PO DAILY 06/08/22 06/08/22 History Allergies Allergy/AdvReac Type Severity Reaction Status Date / Time No Known Drug Allergies Allergy Verified 06/08/22 03:39 Exam Narrative: Exam Narrative: By the time I see him he is just getting off his diltiazem drip. Heart rates are still 100-110 at rest, irregular rhythm, consistent with atrial fibrillation. Appears comfortable. Articulate. Cooperative. No acute distress. Alert, oriented to self, place, time, situation. Mood and affect are congruent. External auditory canals are clear. Hearing is preserved. Midline nasal septum. Normal nasal mucosa. Oropharynx is benign. Moist buccal mucosa. Dentition in fair repair. Extraocular muscles intact. Pupils equally round react to light combination. No icterus. No adenopathy in the pre or postauricular chains, anterior or posterior cervical chains, supra or infraclavicular fossa, submandibular or submental fossa, or axilla bilaterally. Neck is supple. No JVD, hepatojugular reflux, or carotid bruits. Midline trachea. Normal thyroid gland by palpation. Lungs actually are clear to auscultation without wheezing, rhonchi, or rales. No CVA tenderness. Heart tones with irregular rhythm, normal S1-S2, no murmur, gallop, or rub. PMI not laterally displaced. Abdomen with active bowel sounds, soft, nontender. No rebound or guarding. No organomegaly or masses. Extremities without edema. Palpable pulses in upper lower extremities. No focal motor neurologic deficits. Cranial nerves 3-12 grossly normal. No tremor, asterixis, or ataxia. Skin is intact. No cyanosis, petechiae, rashes, or lesions. Const: Vital Signs, click to edit/add: Vital Signs - 24 hr 06/08/22 03:36 06/08/22 03:45 06/08/22 04:00 Temperature 100.3 F H 100.3 F H Pulse Rate [Apical ] 151 H 160 H 146 H Respiratory Rate 22 24 26 H Blood Pressure [Le ft Upper Arm] 127/91 H 127/91 H 139/84 Pulse Oximetry 96 96 95 Oxygen Delivery Me thod Room Air Room Air Room Air 06/08/22 04:15 06/08/22 04:30 06/08/22 04:45 Temperature Pulse Rate [Apical ] 142 H 140 H 126 H Respiratory Rate 20 20 22 Blood Pressure [Le ft Upper Arm] 102/80 116/83 115/79 Pulse Oximetry 95 96 95 Oxygen Delivery Ia thod Room Air Room Air Room Air 06/08/22 05:00 06/08/22 05:15 06/08/22 05:00 Temperature 100.1 F H Pulse Rate [Apical ] 129 H 114 H Respiratory Rate 20 20 Blood Pressure [Le ft Upper Arm] 104/95 H 118/84 Pulse Oximetry 96 96 Oxygen Delivery Ia thod Room Air Room Air 06/08/22 05:30 06/08/22 06:37 06/08/22 05:45 Temperature 100.1 F H 99.5 F Pulse Rate [Apical ] 138 H 137 H Respiratory Rate 20 24 Blood Pressure [Le ft Upper Arm] 116/90 H 128/97 H Pulse Oximetry 96 [facility] 06/08/22 09:15 06/08/22 06:00 06/08/22 06:25 Temperature Pulse Rate [Apical ] 105 H 126 H 134 H Respiratory Rate Blood Pressure [Le ft Upper Arm] 116/81 117/87 127/73 Pulse Oximetry 93 96 [facility] Room Air 06/08/22 06:32 06/08/22 07:00 06/08/22 07:20 Temperature Pulse Rate [Apical ] 129 H 116 H 131 H Respiratory Rate 16 28 H 24 Blood Pressure [Le ft Upper Arm] 106/81 123/87 127/77 Pulse Oximetry 95 95 Oxygen Delivery [facility] Room Air Room Air 06/08/22 07:40 06/08/22 08:00 06/08/22 08:30 Temperature Pulse Rate [Apical ] 113 H 109 H 103 H Respiratory Rate 24 27 H 22 Blood Pressure [Le ft Upper Arm] 105/83 131/90 H 121/83 Pulse Oximetry 95 94 94 [facility] Air 06/08/22 09:05 Temperature Pulse Rate [Apical ] 110 H Respiratory Rate 21 Blood Pressure [Le ft Upper Arm] 125/91 H Pulse Oximetry 95 Oxygen Delivery [facility] Room Air Hospitalist - H&P: Result Labs Labs: Short CBC 06/08/22 Range/Units 03:47 WBC 8.03 (4.50-11.00) K/uL Hgb 13.9 (13.5-17.5) gm/dL Hct 40.4 (37.0-53.0) % Plt Count 287 (140-440) K/uL BMP 06/08/22 03:47 Sodium 135 Potassium 3.9 Chloride 103 Carbon Dioxide 24 BUN 22 Creatinine 0.9 Glucose 130 H Calcium 9.1 Assessment and Plan Assessment and plan (1) Paroxysmal atrial fibrillation with RVR: Status: Acute Assessment and Plan: 1. Will try to achieve rate control with oral diltiazem and oral metoprolol tartrate. 2. IV metoprolol and IV diltiazem as needed. 3. I do not see a need to initiate antiarrhythmic at this juncture. 4. Given that this is the 6 episode of paroxysmal atrial fibrillation, recommended that we initiate anticoagulation with enoxaparin at this time. Will consider switching to novel oral anticoagulant prior to discharge. 5. Obtain echocardiogram once again. Last echo was in October 2021, stress echo, demonstrated no ischemia. Ejection fraction at rest was 55-60%. With stress the ejection fraction increased to greater than 75%. 6. Serial troponins and electrocardiograms. 7. Cardiac telemetry. (2) Acute pericardial effusion: Status: Acute Assessment and Plan: 1. Assess further for possible pericarditis. 2. CRP mildly elevated. Will check erythrocyte sedimentation rate. Normal white blood cell count noted. 3. CT angiogram of the chest with mild pericardial effusion and mild pleural effusion. 4. Consider cardiac MRI in outpatient setting. 5. Our emergency department physician spoke with 2 different elevator technician who recommended initiation of colchicine. First dose given in the emergency department. I will order the 2nd dose for tonight and then a maintenance dose starting tomorrow. (3) Pleural effusion: Status: Acute Assessment and Plan: 1. Very small bilateral pleural effusions, etiology not yet determined. No significant lymphadenopathy noted on CT angiogram. (4) Fever: Status: Acute Assessment and Plan: 1. Etiology uncertain. Describes URI symptoms. (5) Pulmonary nodule seen on imaging study: Status: Acute Assessment and Plan: 1. Right middle lobe pulmonary nodule 1st noted in 2017 is stable. 2. New 4.8 mm right upper lung pulmonary nodule, consider follow-up. Plan 1. Reviewed with patient. Answered his questions to satisfaction. 2. Admit to hospital on telemetry with serial tropes and obtain a repeat echocardiogram. 3. Initiate enoxaparin anticoagulation and later switched to novel oral anticoagulant prior to discharge. Will need to try to choose an agent that is covered by his health insurance. 4. Further workup possibility of pericarditis. 5. Patient agreeable to above stated plans and recommendations. 6. Continue with his usual supportive medications.
[2022-06-08 16:51] LABS: INR 1.05 (0.91-1.10); Prothrombin Time 14.1 Seconds
[2022-06-08 16:52] LABS: Partial Thromboplastin Time* 31 Seconds (23-33)
[2022-06-08] MEDS: MAGNESIUM SULFATE 2 GM/50 ML PIGGYBACK IVPB (16:57)
[2022-06-08] MEDS: dilTIAZem 30 MG TABLET PO ×2 (16:57→22:10)
[2022-06-08] MEDS: METOPROLOL TARTRATE 25 MG TABLET 12.5 MG PO ×2 (16:57→22:09)
[2022-06-08] MEDS: POTASSIUM BICARB 25 MEQ EFFERVESCENT TAB PO (16:58)
[2022-06-08 17:05] LABS: Troponin I* < 0.01 ng/mL (0.01-0.04)
[2022-06-08 17:17] LABS: Erythrocyte SedimentationRate* 72 mm/hr (2-15)
[2022-06-08] MEDS: ENOXAPARIN 100 MG/ML INJ SUBCUT (17:18)
--- NOTE | 2022-06-08 17:24 | ED.NURSE ---
did have additional 650 ml of urine this pm. went to [facility] 2 via w/c.
[2022-06-08 17:46] LABS: Albumin* 3.8 g/dL (3.3-5.0)
[2022-06-08 17:49] LABS: Bilirubin Direct* 0.2 mg/dL (0.0-0.5); Bilirubin Total* 0.7 mg/dL (0.1-1.5); Total Protein* 7.2 g/dL (6.0-8.3)
[2022-06-08 17:50] LABS: Alanine Aminotransferase* 22 U/L (4-50); Alkaline Phosphatase* 79 U/L (40-150); Aspartate Amino Transferase* 19 U/L (12-35)
[2022-06-08] MEDS: ACETAMINOPHEN 325 MG TABLET 650 MG PO (19:55)
[2022-06-08] MEDS: COLCHICINE 0.6 MG CAPSULE 1.2 MG PO (21:58)
[2022-06-08] MEDS: 0.9 % SODIUM CHLORIDE 250 ml IV (22:07)
[2022-06-09] VITALS (8 sets, daily range): BP systolic 94–108; BP diastolic 67–82; PULSE 84–111; RESP 16–20; TEMP 36.5–37.2; O2SAT 94–97
[2022-06-09] MEDS: dilTIAZem 30 MG TABLET PO (04:08)
[2022-06-09] MEDS: METOPROLOL TARTRATE 25 MG TABLET 12.5 MG PO (04:10)
[2022-06-09] MEDS: ENOXAPARIN 100 MG/ML INJ SUBCUT (05:12)
--- NOTE | 2022-06-09 06:04 | PC.NURSE ---
Pt. rested fine all night. denies any chest pain. pt. A-fib w/normal ventricular rate all night. Denies SOB at rest and at activity, ambulated to the BR independently x3 and tolerated activity.
[2022-06-09 07:14] LABS: Chloride* 102 mmol/L (96-114)
[2022-06-09 07:15] LABS: Albumin* 3.4 g/dL (3.3-5.0); Potassium* 4.1 mmol/L (3.6-5.1); Sodium* 135 mmol/L (135-149)
[2022-06-09 07:18] LABS: Blood Urea Nitrogen* 12 mg/dL (7-30); Carbon Dioxide* 30 mmol/L (20-32); Creatinine* 0.6 mg/dL (0.5-1.5); Est. Creatinine Clearance* 145.66; Estimated Glomerular Filt Rate 117 ml/min; Glucose* 123 mg/dL (60-115); Phosphorus* 3.5 mg/dL (2.5-4.5)
[2022-06-09 07:19] LABS: Calcium* 8.8 mg/dL (8.4-10.6)
[2022-06-09 07:32] LABS: Troponin I* < 0.01 ng/mL (0.01-0.04)
[2022-06-09 09:11] LABS: Basophils Absolute Auto 0.03 K/uL (0.00-0.30); Basophils Percent Auto 0.3 % (0.0-3.0); Eosinophils Absolute Auto 0.13 K/uL (0.00-0.50); Eosinophils Percent Auto 1.5 % (0.0-7.0); Hematocrit 39.2 % (37.0-53.0); Hemoglobin* 13.3 gm/dL (13.5-17.5); Immature Granulocytes Abs Auto 0.03 K/uL (0.00-0.30); Lymphocytes Absolute Auto 1.81 K/uL (0.90-2.90); Lymphocytes Percent Auto 20.9 % (20-44); Mean Corpuscular HGB Conc 34 gm/dL (32-36); Mean Corpuscular Hemoglobin 31 pg (26-34); Mean Corpuscular Volume 90 fL (80-100); Monocytes Percent Auto 11.9 % (0.0-11.0); Neutrophils Absolute Auto 5.63 K/uL (1.7-7.0); Neutrophils Percent Auto 65.1 % (42.0-72.0); Platelet Count* 315 K/uL (140-440); Red Blood Count 4.36 m/uL (4.30-5.90); Slide Review Reflex No; White Blood Count* 8.66 K/uL (4.50-11.00)
[2022-06-09 09:17] LABS: Magnesium* 2.4 mg/dL (1.5-2.6)
[2022-06-09 09:20] LABS: HCO3 VBG 25 mmol/L (21-28); PCO2 VBG 33 mmHG (40-50); PO2 VBG 55.1 mmHG (25-47); pH VBG 7.493 (7.32-7.43)
[2022-06-09 09:20] LABS: C Reactive Protein* 7.8 mg/dL (0.5-1.0)
[2022-06-09] MEDS: IBUPROFEN 600 MG TABLET PO ×2 (10:11→18:45)
[2022-06-09] MEDS: FLUOXETINE HCL 20 MG CAPSULE 60 MG PO (10:11)
[2022-06-09] MEDS: FLUOXETINE HCL 10 MG CAPSULE PO (10:11)
[2022-06-09] MEDS: VALACYCLOVIR HCL 500 MG TABLET 1000 MG PO (10:11)
[2022-06-09] MEDS: COLCHICINE 0.6 MG CAPSULE PO ×2 (10:12→20:36)
[2022-06-09] MEDS: METOPROLOL TARTRATE 25 MG TABLET PO ×2 (10:13→20:36)
[2022-06-09 10:15] LABS: Erythrocyte SedimentationRate* 56 mm/hr (2-15)
--- NOTE | 2022-06-09 14:08 | PM.IMPN1 ---
Progress Note: A&P Assessment and plan (1) Paroxysmal atrial fibrillation with RVR: Status: Acute Assessment and Plan: Adjusting medications: Lopressor 25 mg b.i.d., diltiazem controlled release 120 mg daily. If hypotension is a further concern we can hold diltiazem. Lovenox held, apixaban started this morning (2) Acute pericardial effusion: Status: Acute Assessment and Plan: By CT angiogram. Awaiting echo this morning. (3) Pericarditis: Status: Acute Assessment and Plan: Likely. Colchicine and scheduled ibuprofen Plan If his pulse and blood pressure remained stable overnight and chest pain is manageable with acceptable echocardiogram I will discharge him in the morning. Subjective Date Seen: 06/09/22 Interval history: Daily Progress Note - Hospital Medicine Day #: 2 CC: Pericarditis, AFib with RVR OVERNIGHT UPDATES FROM STAFF & MED, LAB, IMAGING UPDATES Overnight the patient has done well. He rested well. His heart rate was controlled. He remains in AFib. He has had only with a deep breath dizzy feel some amount of pressure in his chest. No new fevers. 106/71 Pulse 84 Respirations 16 Afebrile On room air, 96% sats Follow-up CBC this morning was reassuring. ESR 72 down 56 CRP up a little from 5.7-7.8 Troponin undetectable Awaiting echo Review of Systems: See subjective Cardiac: No new chest pain/pressure/palpitations. Respiratory: no new dyspnea. GI: No abdominal bloating Objective: Vitals: see above Lungs: Clear. Cardiac: S1S2. Irregular Disposition/Potential discharge - Likely to return to previous living situation. Total time is 35 minutes with greater than 50% spent in counseling and coordination of care. Exam Const: Vital Signs, click to edit/add: Vital Signs - 24 hr 06/08/22 16:21 06/08/22 17:02 06/08/22 17:15 Temperature 98.5 F Pulse Rate Pulse Rate [Apical ] 103 H Pulse Rate [Left P ulse Oximeter] Respiratory Rate 22 22 Blood Pressure [Le ft Arm] 109/89 Blood Pressure [Le ft Upper Arm] 120/84 Pulse Oximetry 96 96 95 Oxygen Delivery Me thod Room Air Room Air Room Air 06/08/22 14:30 06/08/22 15:00 06/08/22 15:30 Temperature Pulse Rate Pulse Rate [Apical ] 106 H 109 H 102 H Pulse Rate [Left P ulse Oximeter] Respiratory Rate 21 26 H 20 Blood Pressure [Le ft Arm] Blood Pressure [Le ft Upper Arm] 116/77 135/92 H 115/81 Pulse Oximetry 96 96 93 [facility] Room Air 06/08/22 17:23 06/08/22 17:25 06/08/22 19:00 Temperature 98.7 F Pulse Rate 95 Pulse Rate [Apical ] 91 Pulse Rate [Left P ulse Oximeter] Respiratory Rate 20 18 Blood Pressure [Le ft Arm] 101/78 Blood Pressure [Le ft Upper Arm] Pulse Oximetry 94 95 Oxygen Delivery [facility] Room Air Room Air 06/08/22 19:00 06/08/22 23:00 06/08/22 23:00 Temperature 98.7 F Pulse Rate 95 Pulse Rate [Apical ] Pulse Rate [Left P ulse Oximeter] Respiratory Rate 18 18 Blood Pressure [Le ft Arm] 101/78 Blood Pressure [Le ft Upper Arm] Pulse Oximetry 95 Oxygen Delivery [facility] Room Air 06/08/22 23:00 06/09/22 03:00 06/09/22 07:54 Temperature 98.0 F 98.9 F Pulse Rate 85 Pulse Rate [Apical ] Pulse Rate [Left P ulse Oximeter] 93 Respiratory Rate 18 18 Blood Pressure [Le ft Arm] 108/76 104/75 Blood Pressure [Le ft Upper Arm] Pulse Oximetry 96 95 Oxygen Delivery [facility] Room Air Room Air 06/09/22 08:11 06/09/22 08:11 06/09/22 10:12 Temperature 97.7 F 97.9 F Pulse Rate Pulse Rate [Apical ] Pulse Rate [Left P ulse Oximeter] 85 87 84 Respiratory Rate 16 16 16 Blood Pressure [Le ft Arm] 102/67 106/71 Blood Pressure [Le ft Upper Arm] Pulse Oximetry 94 96 Oxygen Delivery [facility] Room Air Room Air Labs Labs: Laboratory Results - last 24 hr 06/08/22 06/08/22 06/08/22 16:20 16:20 16:20 WBC RBC Hgb Hct MCV MCH MCHC RDW Coeff of Mariana Plt Count Neut % (Auto) Lymph % (Auto) [place] % (Auto) Eos % (Auto) Baso % (Auto) Neut # (Auto) Lymph # (Auto) [place] # (Auto) Eos # (Auto) Baso # (Auto) Abs Immat Gran (auto) ESR 72 H INR 1.05 APTT 31 VBG pH VBG pCO2 VBG pO2 VBG HCO3 Sodium Potassium Chloride Carbon Dioxide BUN Creatinine Estimated Creat Clear Estimated GFR Glucose Calcium Phosphorus Magnesium Total Bilirubin 0.7 Direct Bilirubin 0.2 AST 19 ALT 22 Alkaline Phosphatase 79 Troponin I < 0.01 L C-Reactive Protein Total Protein 7.2 Albumin 3.8 06/09/22 06/09/22 06/09/22 06:41 06:41 06:41 WBC 8.66 RBC 4.36 Hgb 13.3 L Hct 39.2 MCV 90 MCH 31 MCHC 34 RDW Coeff of [place] 12.0 Plt Count 315 Neut % (Auto) 65.1 Lymph % (Auto) 20.9 [place] % (Auto) 11.9 H Eos % (Auto) 1.5 Baso % (Auto) 0.3 Neut # (Auto) 5.63 Lymph # (Auto) 1.81 [place] # (Auto) 1.00 H Eos # (Auto) 0.13 Baso # (Auto) 0.03 Abs Immat Gran (auto) 0.03 ESR INR APTT VBG pH VBG pCO2 VBG pO2 VBG HCO3 Sodium 135 Potassium 4.1 Chloride 102 Carbon Dioxide 30 BUN 12 Creatinine 0.6 Estimated Creat Clear 145.66 Estimated GFR 117 Glucose 123 H Calcium 8.8 Phosphorus 3.5 Magnesium 2.4 Total Bilirubin Direct Bilirubin AST ALT Alkaline Phosphatase Troponin I < 0.01 L C-Reactive Protein 7.8 H Total Protein Albumin 3.4 06/09/22 06/09/22 06/09/22 06:41 06:41 09:10 WBC RBC Hgb Hct MCV MCH MCHC RDW Coeff of [place] Plt Count Neut % (Auto) Lymph % (Auto) [place] % (Auto) Eos % (Auto) Baso % (Auto) Neut # (Auto) Lymph # (Auto) [place] # (Auto) Eos # (Auto) Baso # (Auto) Abs Immat Gran (auto) ESR 56 H INR APTT VBG pH 7.493 H VBG pCO2 33 L VBG pO2 55.1 H VBG HCO3 25 Sodium Potassium Chloride Carbon Dioxide BUN Creatinine Estimated Creat Clear Estimated GFR Glucose Calcium Phosphorus Magnesium Total Bilirubin Direct Bilirubin AST ALT Alkaline Phosphatase Troponin I C-Reactive Protein Cancelled Total Protein Albumin
[2022-06-09] MEDS: APIXABAN 5 MG TABLET PO (17:04)
--- NOTE | 2022-06-09 17:50 | PC.NURSE ---
Addendum entered by Tania Boss RN 06/09/22 17:58: Added: Pt. tolerated well increased dose of metoprolol. Pt's spouse had questions re: returning home this evening, and RN answered questions to best of ability. Checked with Dr. Vega who will be counseling patient and spouse. Original Note: [id number]: Pt. up independently in room today. Slept off and on all day, getting up to void x5, unmeasured. Denies chest pain, pressure, shortness of breath, etc., but notes fatigue. Headache alleviated w/ibuprofen this morning, declined additional dose when offered later. BPs low 100s systolically, HR 80s-mid 100s (up to 130s when up using restroom, and while walking in halls). Tele showing afib as well. AM dose of metoprolol 25mg administered.
[2022-06-09] MEDS: dilTIAZem 120 MG CAP.ER.24H PO (18:44)
--- NOTE | 2022-06-09 18:49 | PC.NURSE ---
1850: 120mg diltiazem initiated. Pt. given verbal and handout information on new medications. Pt. will be spending the night. Encouraged him to got on 1-2 more walks this evening.
[2022-06-10 03:00] VITALS: BP 112/69; PULSE 100; RESP 20; TEMP 37.9; O2SAT 97
[2022-06-10 03:30] VITALS: TEMP 37.9
[2022-06-10] MEDS: ACETAMINOPHEN 325 MG TABLET 650 MG PO (03:30)
[2022-06-10 06:16] VITALS: TEMP 37.2
--- NOTE | 2022-06-10 06:34 | PC.NURSE ---
Shift 7p-7a: Pt. AOx4, following commands on RA. Pt.'s HR well controlled with metoprolol and diltiazem PO, denies pain, headaches, N/V, chest pain, and dizziness. Pt. ambulated independently in hallway before bedtime, ambulating to toilet and voiding well. Pt. also had one BM overnight. Pt. spiked a temp of 100.3 F at 0300, tylenol PRN administered, repeat temp 98.9 F. Pt. No other complaints/issues at this time, pt. resting comfortably in bed.
[2022-06-10] MEDS: OMEPRAZOLE 20 MG CAPSULE DR PO (07:02)
[2022-06-10 07:05] LABS: Hematocrit 37.4 % (37.0-53.0); Hemoglobin* 12.7 gm/dL (13.5-17.5); Mean Corpuscular HGB Conc 34 gm/dL (32-36); Mean Corpuscular Hemoglobin 31 pg (26-34); Mean Corpuscular Volume 90 fL (80-100); Platelet Count* 282 K/uL (140-440); Red Blood Count 4.17 m/uL (4.30-5.90); White Blood Count* 8.65 K/uL (4.50-11.00)
[2022-06-10 07:20] VITALS: BP 108/76; PULSE 83; RESP 16; RESP 20; TEMP 37.6; O2SAT 95
[2022-06-10 07:24] VITALS: PULSE 85
[2022-06-10 07:24] LABS: Chloride* 107 mmol/L (96-114); Sodium* 138 mmol/L (135-149)
[2022-06-10 07:27] LABS: Blood Urea Nitrogen* 16 mg/dL (7-30); Carbon Dioxide* 29 mmol/L (20-32); Creatinine* 0.7 mg/dL (0.5-1.5); Est. Creatinine Clearance* 124.85; Estimated Glomerular Filt Rate 112 ml/min; Slide Review Reflex No
[2022-06-10 07:28] LABS: Calcium* 8.7 mg/dL (8.4-10.6); Glucose* 119 mg/dL (60-115)
[2022-06-10 07:30] LABS: C Reactive Protein* 7.1 mg/dL (0.5-1.0)
[2022-06-10 07:35] LABS: NT Pro B Type NatriureticPept* 942 PG/mL (0-125)
[2022-06-10 07:39] LABS: Troponin I* < 0.01 ng/mL (0.01-0.04)
[2022-06-10 08:23] LABS: Erythrocyte SedimentationRate* 58 mm/hr (2-15)
[2022-06-10] MEDS: APIXABAN 5 MG TABLET PO (09:02)
[2022-06-10] MEDS: FLUOXETINE HCL 10 MG CAPSULE PO (09:03)
[2022-06-10] MEDS: IBUPROFEN 600 MG TABLET PO (09:03)
[2022-06-10] MEDS: dilTIAZem 120 MG CAP.ER.24H PO (09:03)
[2022-06-10] MEDS: FLUOXETINE HCL 20 MG CAPSULE 60 MG PO (09:03)
[2022-06-10] MEDS: COLCHICINE 0.6 MG CAPSULE PO (09:04)
[2022-06-10] MEDS: VALACYCLOVIR HCL 500 MG TABLET 1000 MG PO (09:04)
[2022-06-10] MEDS: METOPROLOL TARTRATE 25 MG TABLET PO (09:04)
[2022-06-10 11:35] VITALS: BP 108/73; PULSE 84; RESP 16; TEMP 37.1; O2SAT 96
--- NOTE | 2022-06-10 12:15 | PC.NURSE ---
discharge pt has been very pleasant. is caring and supportive. no pain. tele shows A-Fib he is eating, drinking and voiding with no problems. SL was d/c intact x2. Pt's HR controlled with metoprolol and diltiazem PO. no lightheadedness or dizziness he is up ab juanjo. Holter monitor was placed by clinic. went over discharge packet with pt and . went over medications x5 appts x3, instructions and education. pt went over and signed personal belonging list. he left with all paperwork and belongings.
--- NOTE | 2022-06-11 15:00 | PM.DS1 ---
DS: Providers Provider Date Seen: 06/10/22 Date of admission: 06/08/22 16:06 Primary care physician: Diego Choe MD Admitting Clinician: Ab Vega MD Attending Physician on discharge: Dena Hernandez MD [place] Hospitalist Date of Discharge: 06/10/22 DS: Diagnosis Discharge Diagnosis (1) Paroxysmal atrial fibrillation with RVR: Status: Acute (2) Pericarditis: Status: Acute (3) Fever: Status: Acute DS: Summary Hospital Course Hospital Course: HOSPITALIST DISCHARGE SUMMARY ATTENDING PHYSICIAN: Dena Hernandez MD FINAL DIAGNOSIS: Paroxysmal AFib with RVR Acute pericarditis HOSPITAL FOLLOWUP ISSUES: 1. AFib management, Cardiology referral. 2. Subacute pericarditis REFERRALS WHILE ADMITTED: None REFERRALS AFTER DISCHARGE: None BRIEF HOSPITAL COURSE: 51-year-old with a history of AFib and pericarditis presents with palpitations/tachyarrhythmia. Please see H&P in ER evaluations for further information. Ultimately the patient was brought to the floor initially on a Cardizem drip. Was rate controlled soon after arrival and this was discontinued. I started him on oral medication to include metoprolol and diltiazem. He tolerated this without syncope or hypotension or bradycardia. His pericarditis was treated with oral colchicine and ibuprofen. His echo showed trace pericardial effusion, otherwise intact LV function. When he discharged he was prescribed apixaban, metoprolol, Cardizem, colchicine and ibuprofen. A Holter monitor was also placed. A referral to [facility] displaced. VITAL SIGN, MEDICATION, LAB/MICRO, IMAGING SUMMARY (full details available in account tabs or by records request) 108/73. Pulse 84. Afebrile. 96% on room air. At discharge he had a normal white count. Hemoglobin had drifted down but was still acceptable at 12.7, platelets were normal. Normal Chem panel. Troponins remain negative. Mildly elevated C reactive protein consistent with his known acute pericarditis BNP was mildly elevated at 942 Chest CTA was reviewed that was done at admission. Echo was reviewed. Holter monitor placed. DISCHARGE MEDICATIONS: See Reconciled list REVIEW OF SYSTEMS No new chest pain or dyspnea Pain controlled No voiding difficulties Tolerating diet challenge PHYSICAL EXAM: CONSTITUTIONAL: Well. VITAL SIGNS: see record. HEENT: Normocephalic, atraumatic. PERRL, EOMI, conjunctivae pink, no scleral icterus. Ears and nose externally normal. Pharynx normal. NECK: No JVD. No carotid bruit, no thyromegaly, no adenopathy. CHEST: Clear to auscultation bilaterally. HEART: Irregularly irregular. No edema. ABDOMEN: Soft, nontender. Normal bowel sounds. MUSCULOSKELETAL: No gross joint deformity or swelling. NEURO: Cranial nerves intact. Grossly intact. No asymmetric findings. SKIN: No rashes, petechiae, concerning changes PSYCHIATRIC: Mood euthymic. DISPOSITION: Home with Time spent on discharge 37 minutes. . Status at Discharge Functional status at discharge: independent ambulation Overall status at discharge: patient is progressing back to baseline Time Spent with Patient Time attestation: Total time spent providing and/or coordinating discharge services: Discharge Plan Discharge Disposition: Home, Self-Care Date of Admission: 06/08/22 16:06 Attending Provider on Discharge: Dena Hernandez Primary Care Provider: Diego Choe Condition: Improved Anticipated Discharge Date/Time: 06/10/22 10:39 Discharge Medications: New Eliquis 5 mg Tablet 5 mg PO BID@0900,1700 Qty: 60 0RF colchicine 0.6 mg Capsule 0.6 mg PO BID Qty: 60 0RF diltiazem HCl [DILT-XR] 120 mg Capsule,Ext.Rel 24h Degradable 120 mg PO DAILY Qty: 30 0RF ibuprofen 600 mg Tablet 600 mg PO TIDWM Qty: 90 0RF metoprolol tartrate 25 mg Tablet 25 mg PO BID Qty: 60 0RF Continued valacyclovir 1 gram tablet 1,000 mg PO DAILY fluoxetine 10 mg capsule 10 mg PO DAILY Rx Instructions: TOTAL DAILY DOSE = 70MG fluoxetine 20 mg capsule 60 mg PO DAILY Rx Instructions: TOTAL DAILY DOSE = 70MG Discharge Orders: Discharge Order (Routine); Ordered 06/10/22 Ordered By: Dena Hernandez Patient Education: Metoprolol (By mouth), Diltiazem (By mouth), Ibuprofen (By mouth), Colchicine (By mouth), Apixaban (By mouth) (Eliquis), A-fib (Atrial Fibrillation) (DC) Activity Restrictions/Additional Instructions: If you have an increased heart rate (above 120) that is sustained over 2 hours - you can take an extra metoprolol and monitor. If your heart rate stays >120 despite 2 extra doses (an hour apart) go ahead and come in. We are placing a heart rate and rhythm monitor on you today, follow directions for return and your business operations coordinator will go over results at follow-up. Activity Level: No Restrictions Discharge Diet: Regular Follow Up Appointments: [facility] [Provider Group] - 08/07/22 1:30 pm ([facility] will call patient if any sooner appointment becomes available) Diego Choe MD [Primary Care Provider] - (Follow up appointment scheduled for July 04, 10:45 Dr. Choe @ [facility]) Forms: 51 Give Info Instructions
== END 2022-06-10 12:15 | disposition home or self-care (01) | DRG 201 ==
LOC: ED 16:07 → MEDSURG 16:07
PROVIDERS: Family Medicine; Admitting Provider Internal Medicine; Emergency Provider Family Medicine; PCP Family Medicine; Visit Provider Internal Medicine
DX: I48.0 Paroxysmal atrial fibrillation (principal); Z79.01 Long term (current) use of anticoagulants; I30.9 Acute pericarditis, unspecified; J90 Pleural effusion, not elsewhere classified; R50.9 Fever, unspecified; R91.1 Solitary pulmonary nodule; I10 Essential (primary) hypertension; F90.9 Attention-deficit hyperactivity disorder, unspecified type; F32.A Depression, unspecified
CPT/HCPCS: 36415; 71045; 71260; 80048; 80069; 80076; 80306; 82077; 82803; 83735; 83880; 84443; 84484; 85025; 85027; 85379; 85610; 85651; 85730; 86140; 87502; 87635; 93005; 93225; 93226; 93306; 99285; 99291; 99292; A9270; J1650; J1940; J3475; J3490; J7030; J7050; Q9967

== ENCOUNTER 2022-06-26 11:48 | Outpatient (CLI) | payer BC, SELFPAY ==
[2022-06-26 13:45] LABS: INR 1.15 (0.91-1.10); Prothrombin Time 15.1 Seconds
== END 2022-06-26 11:49 | disposition home or self-care (01) ==
PROVIDERS: PCP Family Medicine; Visit Provider Physician Assistant Medical
DX: I48.91 Unspecified atrial fibrillation (principal)
CPT/HCPCS: 85610

== ENCOUNTER 2022-07-04 11:43 | Outpatient (CLI) | payer BC, SELFPAY ==
[2022-07-04 21:59] LABS: Thyroid Stimulating Hormone* 0.991 uIU/mL (0.270-4.20)
== END 2022-07-04 11:44 | disposition home or self-care (01) ==
LOC: LKVREF 11:43
PROVIDERS: PCP Family Medicine; Visit Provider Family Medicine
DX: I48.91 Unspecified atrial fibrillation (principal); Z79.01 Long term (current) use of anticoagulants
CPT/HCPCS: 84443

== ENCOUNTER 2023-08-04 14:03 | Outpatient (CLI) | payer BC, SELFPAY | END 2023-08-04 14:04 | disposition home or self-care (01) | PROVIDERS: PCP Family Medicine; Visit Provider Family Medicine | DX: Z00.00 Encounter for general adult medical examination without abnormal findings (principal); I10 Essential (primary) hypertension; R07.9 Chest pain, unspecified; I31.9 Disease of pericardium, unspecified; M10.9 Gout, unspecified; Z12.5 Encounter for screening for malignant neoplasm of prostate; Z13.6 Encounter for screening for cardiovascular disorders | CPT/HCPCS: 80061; 80076; 84153; 85651 ==

== ENCOUNTER 2023-11-12 09:11 | Outpatient (CLI) | payer BC, SELFPAY | END 2023-11-12 09:12 | disposition home or self-care (01) | LOC: NFLDREF 11-15 07:24 | PROVIDERS: PCP Family Medicine; Referring Provider Family Medicine; Visit Provider Family Medicine | DX: Z00.00 Encounter for general adult medical examination without abnormal findings (principal); R53.83 Other fatigue; I10 Essential (primary) hypertension | CPT/HCPCS: 80053; 84270; 84402; 84403 ==

== ENCOUNTER 2024-02-12 09:40 | Outpatient (CLI) | payer BC, SELFPAY | END 2024-02-12 09:41 | disposition home or self-care (01) | LOC: NFLDREF 02-16 08:20 | PROVIDERS: PCP Family Medicine; Referring Provider Family Medicine; Visit Provider Family Medicine | DX: R79.89 Other specified abnormal findings of blood chemistry (principal) | CPT/HCPCS: 80053; 84270; 84402; 84403 ==

== ENCOUNTER 2024-06-11 08:35 | Outpatient (RCR) | payer BC, SELFPAY | END 2024-09-21 10:16 | disposition home or self-care (01) | PROVIDERS: PCP Family Medicine; Visit Provider Family Medicine | DX: M72.2 Plantar fascial fibromatosis (principal); M79.672 Pain in left foot; M25.50 Pain in unspecified joint; Z74.09 Other reduced mobility; M25.373 Other instability, unspecified ankle; M25.359 Other instability, unspecified hip; M62.9 Disorder of muscle, unspecified; Z51.89 Encounter for other specified aftercare | CPT/HCPCS: 97110; 97161 ==

== ENCOUNTER 2024-07-29 10:36 | Outpatient (CLI) | payer BC, SELFPAY | END 2024-07-29 10:37 | disposition home or self-care (01) | PROVIDERS: PCP Family Medicine; Visit Provider Family Medicine | DX: Z00.00 Encounter for general adult medical examination without abnormal findings (principal); R53.83 Other fatigue; R79.89 Other specified abnormal findings of blood chemistry; I10 Essential (primary) hypertension; I48.91 Unspecified atrial fibrillation; Z12.5 Encounter for screening for malignant neoplasm of prostate | CPT/HCPCS: 80053; 80061; 80076; 84270; 84402; 84403; G0103 ==

== ENCOUNTER 2025-01-17 08:09 | Outpatient (CLI) | payer BC, SELFPAY | END 2025-01-17 08:10 | disposition home or self-care (01) | LOC: NFLDREF 01-18 05:56 | PROVIDERS: PCP Family Medicine; Referring Provider Family Medicine; Visit Provider Family Medicine | DX: R53.83 Other fatigue (principal); R79.89 Other specified abnormal findings of blood chemistry; Z13.220 Encounter for screening for lipoid disorders | CPT/HCPCS: 80061; 84270; 84402; 84403 ==

== ENCOUNTER 2025-06-13 09:02 | Outpatient (CLI) | payer BC, SELFPAY | END 2025-06-13 09:03 | disposition home or self-care (01) | LOC: NFLDREF 06-15 17:09 | PROVIDERS: PCP Family Medicine; Referring Provider Family Medicine; Visit Provider Family Medicine | DX: R79.89 Other specified abnormal findings of blood chemistry (principal); R53.83 Other fatigue; Z12.5 Encounter for screening for malignant neoplasm of prostate | CPT/HCPCS: 80053; 84270; 84402; 84403; G0103 ==

== ENCOUNTER 2025-06-16 10:14 | Outpatient (CLI) | payer BC, SELFPAY | END 2025-06-16 10:15 | disposition home or self-care (01) | PROVIDERS: PCP Family Medicine; Visit Provider Family Medicine | DX: R79.89 Other specified abnormal findings of blood chemistry (principal); R53.83 Other fatigue; F90.9 Attention-deficit hyperactivity disorder, unspecified type; Z79.899 Other long term (current) drug therapy | CPT/HCPCS: 80306; 84270; 84402; 84403 ==

== ENCOUNTER 2025-08-02 13:04 | Outpatient (CLI) | payer BC, SELFPAY | END 2025-08-02 13:05 | disposition home or self-care (01) | LOC: LKVREF 13:07 | PROVIDERS: PCP Family Medicine | DX: I48.91 Unspecified atrial fibrillation (principal) | CPT/HCPCS: 86140 ==

== ENCOUNTER 2025-08-08 13:42 | Outpatient (CLI) | payer BC, SELFPAY | END 2025-08-08 13:43 | disposition home or self-care (01) | PROVIDERS: PCP Family Medicine; Visit Provider Family Medicine | DX: I10 Essential (primary) hypertension (principal); I48.91 Unspecified atrial fibrillation | CPT/HCPCS: 84443; 86140 ==

== ENCOUNTER 2025-08-15 08:41 | Outpatient (CLI) | payer BC, SELFPAY | END 2025-08-15 08:42 | disposition home or self-care (01) | LOC: RAD 08:41 | PROVIDERS: PCP Family Medicine; Visit Provider Family Medicine | DX: I48.91 Unspecified atrial fibrillation (principal); I31.9 Disease of pericardium, unspecified; I34.0 Nonrheumatic mitral (valve) insufficiency; I07.1 Rheumatic tricuspid insufficiency; I10 Essential (primary) hypertension | CPT/HCPCS: 93306 ==

== ENCOUNTER 2025-09-26 09:03 | Outpatient (CLI) | payer BC, SELFPAY | END 2025-09-26 09:04 | disposition home or self-care (01) | LOC: NFLDREF 09-30 06:24 | PROVIDERS: PCP Family Medicine; Referring Provider Family Medicine; Visit Provider Family Medicine | DX: R79.89 Other specified abnormal findings of blood chemistry (principal) | CPT/HCPCS: 80076 ==